=== PATIENT | male | born 1985 | race African-American/Black ===

== ENCOUNTER 2019-07-24 13:35 | Emergency (ER) | payer SELFPAY ==
[2019-07-24] MEDS ORDERED: TETRACAINE HCL 0.5% 4ML OPTH ONE (14:29)
[2019-07-24] MEDS ORDERED: TETANUS & DIPHTHERIA TOX,ADULT 0.5 ML VIAL ONE (14:29)
[2019-07-24] MEDS ORDERED: FLUORESCEIN SODIUM 1 MG/WRAP ONE (14:30)
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
[2019-07-24] MEDS ORDERED: LIDOCAINE 1% MPF 5 ML VIAL ONE (15:53)
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
[2019-07-24 19:20] VITALS: TEMP 98.4
[2019-07-24 19:21] VITALS: BP 128/75; O2SAT 99
== END 2019-07-24 17:06 | disposition home or self-care (01) ==
LOC: ER 13:35
PROC: 08QPXZZ Repair Left Upper Eyelid, External Approach (ICD-10-PCS; principal; 2019-07-24)
DX: S01.112A Laceration without foreign body of left eyelid and periocular area, initial encounter (principal); Y04.2XXA Assault by strike against or bumped into by another person, initial encounter; Y92.009 Unspecified place in unspecified non-institutional (private) residence as the place of occurrence of the external cause; Y93.89 Activity, other specified
CPT/HCPCS: 70450; 70486; 76377; 90714; 99284